=== PATIENT | male | born 1975 | race Caucasian/White ===

== ENCOUNTER 2018-10-07 21:19 | Emergency (ER) | payer SELFPAY ==
[~2018-10-07] VITALS: Ht 162.6 cm; Wt 64.0 kg
[2018-10-08] MEDS ORDERED: LORAZEPAM 1MG TABLET PO ONE (00:30)
[2018-10-08 00:34] LABS: BASOPHILS % 0.8 % (0.0-2.0); HEMATOCRIT. 44.1 % (42.0-52.0); HEMOGLOBIN. 15.8 g/dL (14.0-18.0); LYMPHOCYTES % 35.6 % (20.0-50.0); MEAN CORPUSCULAR HEMOGLOBIN 33.7 pg (28.0-32.0); MONOCYTES % 7.4 % (2.0-8.0); NEUTROPHILS % 55.2 % (40.0-76.0); PLATELET 281 x1000/uL (130-400); RED BLOOD CELL COUNT 4.69 mill/uL (4.7-6.1); RED CELL DISTRIBUTION WIDTH 13.5 % (11.6-14.6)
[2018-10-08 00:40] LABS: CHLORIDE 108 mEq/L (98-107)
[2018-10-08 00:44] LABS: ETHANOL BLOOD < 10 mg/dL
[2018-10-08 00:48] LABS: CREATINE KINASE 441 IU/L (39-308)
[2018-10-08 07:24] LABS: *AMPHETAMINES SCREEN URINE PRESUMTIVE POSITIVE (NEGATIVE); *BARBITURATES SCREEN URINE NEGATIVE (NEGATIVE); *BENZODIAZEPINES SCREEN URINE NEGATIVE (NEGATIVE); *COCAINE SCREEN URINE NEGATIVE (NEGATIVE); CANNABINOID URINE SCREEN NEGATIVE (NEGATIVE)
[2018-10-08 07:25] LABS: METHADONE URINE SCREEN NEGATIVE (NEGATIVE); OPIATES URINE SCREEN NEGATIVE (NEGATIVE); PHENCYCLIDINE URINE SCREEN NEGATIVE (NEGATIVE)
[2018-10-08 10:10] VITALS: BP 133/96
== END 2018-10-08 10:20 | disposition home or self-care (01) ==
LOC: ER 21:19
DX: R00.2 Palpitations (principal); E86.0 Dehydration; F22 Delusional disorders; F15.10 Other stimulant abuse, uncomplicated; F17.210 Nicotine dependence, cigarettes, uncomplicated; Z71.6 Tobacco abuse counseling; Z59.0 Homelessness
CPT/HCPCS: 36415; 80305; 80307; 80320; 80329; 82550; 84443; 93005; 99284; 99406; G0480